=== PATIENT | female | born 1950 | race Caucasian/White ===

== ENCOUNTER → 2016-03-15 | Outpatient (CLI) | payer MEDICARE, OTHER ==
[2016-03-15 11:39] LABS: Basophils # (A) 0.1 k/uL (0-0.2); Basophils % (A) 1 %; CH 29.1; Eosinophils # (A) 0.3 k/uL (0-0.7); Eosinophils % (A) 4 %; HCT 42.2 % (34.0-46.0); HDW 2.54; HGB 13.2 gm/dL (11.4-16.0); Luc # (Auto) 0.13; Luc % (Auto) 2; Lymphocytes # (A) 1.8 k/uL (1.0-4.8); Lymphocytes % (A) 25 %; MCH 28.4 pg (25.0-35.0); MCHC 31.2 g/dL (31.0-37.0); MCV 91.2 fL (80.0-100.0); Monocytes # (A) 0.3 k/uL (0-1.0); Monocytes % (A) 4 %; Neutrophils # (A) 4.7 k/uL (1.3-7.7); Neutrophils % (A) 65 %; RBC 4.63 m/uL (3.80-5.40); RDW 15.7 % (11.5-15.5); WBC 7.2 k/uL (3.8-10.6); WBC (Perox) 7.58
[2016-03-15 11:42] LABS: Anion Gap 13 mmol/L; Blood Urea Nitrogen 15 mg/dL (7-17); Calcium 9.4 mg/dL (8.4-10.2); Carbon Dioxide 30 mmol/L (22-30); Chloride 100 mmol/L (98-107); Glucose 109 mg/dL (74-99); Non-African American GFR(MDRD) 55 (>60 ml/min/1.73 sqM); Sodium 143 mmol/L (137-145)
[2016-03-15 11:47] LABS: Potassium 2.9 mmol/L (3.5-5.1)
== END | disposition home or self-care (01) ==
LOC: LABWHC1 10:43
PROVIDERS: ATTEND Internal Medicine Clinical Cardiac Electrophysiology
DX: E78.1 Pure hyperglyceridemia (principal); I10 Essential (primary) hypertension
CPT/HCPCS: 36415; 80048; 85025

== ENCOUNTER 2016-03-20 05:58 | Day surgery (SDC) | payer MEDICARE, OTHER ==
[2016-03-16 10:23] VITALS: BMI 22.4
[2016-03-20] MEDS ORDERED: SODIUM CHLORIDE 0.9% 1,000 ML IV SCH (06:00)
[2016-03-20 06:34] VITALS: TEMP 98.1
[2016-03-20 06:59] VITALS: RESP 16
[2016-03-20 07:09] LABS: Potassium 3.9 mmol/L (3.5-5.1)
[2016-03-20] MEDS ORDERED: PROPOFOL 10 MG/ML 20 ML VIAL IV ONE (07:33)
--- NOTE | 2016-03-20 09:05 | CE ---
DATE OF SERVICE: Ms. Antoine has severe cardiomyopathy. She has a single chamber ICD, [employer] VR [id number] ICD. She was brought in for ICD testing under anesthesia. She has a Riata lead which is on advisory. Pacing threshold is 1.25 v at 1 ms, sensing 7.6 mV, pacing impedance 410 ohms, a high voltage impedance is 80 ohms from RV ( ). DFT testing was performed under anesthesia. A DC joule shock was used to induce ventricular fibrillation. This was adequately and appropriately detected at least sensitivity without any dropouts and successfully internally defibrillated with a 10 joule shock. Charge time 2 seconds. Shocking impedance 80 ohms. No postshock noise. Device is then reprogrammed according to the MADIT-RIT programming with C Accu-zones with appropriate antitachycardia pacing, cardioversion and defibrillation. Sensitivity was reprogrammed to 0.5 mV and SVC coil had been turned off for the testing and we turned it off completely. Patient tolerated the procedure well without any acute complication.
[2016-03-20 09:06] VITALS: BP 145/59
[2016-03-20 09:07] VITALS: PULSE 70
== END 2016-03-20 09:25 | disposition home or self-care (01) ==
LOC: CATHEP 05:58
PROVIDERS: ATTEND Internal Medicine Clinical Cardiac Electrophysiology
DX: I42.8 Other cardiomyopathies (principal); Z45.02 Encounter for adjustment and management of automatic implantable cardiac defibrillator; I10 Essential (primary) hypertension; E78.5 Hyperlipidemia, unspecified; E07.9 Disorder of thyroid, unspecified; J44.9 Chronic obstructive pulmonary disease, unspecified; F17.200 Nicotine dependence, unspecified, uncomplicated; G35 Multiple sclerosis; Z79.82 Long term (current) use of aspirin; Z79.899 Other long term (current) drug therapy; Z88.5 Allergy status to narcotic agent; Z88.2 Allergy status to sulfonamides
CPT/HCPCS: 93642; 80051; J2704; 99152; 99153

== ENCOUNTER → 2016-04-12 | Outpatient (CLI) | payer MEDICARE, OTHER ==
[2016-04-12 10:56] LABS: CH 29.7; HDW 2.33; HGB 13.1 gm/dL (11.4-16.0); MCH 29.1 pg (25.0-35.0); MCHC 31.2 g/dL (31.0-37.0); MCV 93.2 fL (80.0-100.0); Mean Platelet Volume 7.2; RBC 4.51 m/uL (3.80-5.40); RDW 15.5 % (11.5-15.5); WBC 8.4 k/uL (3.8-10.6)
[2016-04-12 11:04] LABS: INR 1.1 (<1.1)
[2016-04-12 11:05] LABS: ALT 24 U/L (9-52); AST 18 U/L (14-36); Alkaline Phosphatase 130 U/L (38-126); Anion Gap 13 mmol/L; Blood Urea Nitrogen 20 mg/dL (7-17); Calcium 9.8 mg/dL (8.4-10.2); Carbon Dioxide 28 mmol/L (22-30); Chloride 101 mmol/L (98-107); Glucose 115 mg/dL (74-99); Non-African American GFR(MDRD) 50 (>60 ml/min/1.73 sqM); Potassium 4.7 mmol/L (3.5-5.1); Sodium 142 mmol/L (137-145); Total Bilirubin 0.6 mg/dL (0.2-1.3); Total Protein 7.5 g/dL (6.3-8.2)
== END | disposition home or self-care (01) ==
LOC: LABWHC1 10:11
PROVIDERS: ATTEND Internal Medicine Interventional Cardiology
DX: E87.6 Hypokalemia (principal); T39.391A Poisoning by other nonsteroidal anti-inflammatory drugs [NSAID], accidental (unintentional), initial encounter
CPT/HCPCS: 36415; 80053; 85027; 85610

== ENCOUNTER → 2016-10-12 | Outpatient (CLI) | payer MEDICARE ==
--- NOTE | 2016-10-12 13:31 | XR ---
EXAMINATION TYPE: XR wrist complete RT DATE OF EXAM: 10/12/2016 CLINICAL HISTORY: pain TECHNIQUE: Frontal, lateral and oblique images of the right wrist are obtained. COMPARISON: None. FINDINGS: There is fracture noted to involve the mid scaphoid. The joint spaces appear within normal limits. The overlying soft tissue appears unremarkable. IMPRESSION: Fracture involving the mid pole of the scaphoid.
== END | disposition home or self-care (01) ==
LOC: RADXRMAIN 12:01
PROVIDERS: ATTEND Pediatrics
DX: S62.021A Displaced fracture of middle third of navicular [scaphoid] bone of right wrist, initial encounter for closed fracture (principal)

== ENCOUNTER → 2016-11-02 | Outpatient (CLI) | payer MEDICARE ==
--- NOTE | 2016-11-03 14:27 | BD ---
EXAMINATION TYPE: MG DEXA axial skeleton. DATE OF EXAM: 11/02/2016 COMPARISON: NONE CLINICAL HISTORY: Postmenopausal female. Height: 5FT Weight: 117 FRAX RISK QUESTIONS: Alcohol (3 or more units per day): NO Family History (Parent hip fracture): NO Glucocorticoids (More than 3mos): NO (Ex: prednisone, prednisolone, methylprednisolone, dexamethasone, and hydrocortisone). History of Fracture in Adulthood: YES Secondary Osteoporosis: 1. Type 1 Diabetes: NO 2. Hyperthyroidism: NO 3. Menopause before 45: YES 4. Malnutrition: NO 5. Chronic liver disease: NO Rheumatoid Arthritis: NO Current Tobacco Use: YES RISK FACTORS HISTORY OF: History of Wrist Fracture: LT WRIST When: AGE 58 Surgery to Spine/Hip(right/left)/Wrist (right/left): LT WRIST When: 58 Family History of Osteoporosis: YES Active: NO Postmenopausal woman: PART HYST AGE 35 MEDICATIONS: Thyroid Medications: YES Which medication: SYNTHROID How Long: SINCE 1975 Osteoporosis Medications: YES Which medication: FOSAMAX How Long: DOES NOT KNOW Additional Medications: VIT D3, IRON, ABILIFY, ARIPIPRAZOLE, ASPIRIN, ATIVAN, BACLOFEN, CARVEDILOL, D IGOXIN,DOCUSATE SODIUM, EFFEXOR, FOSAMAX,IBUPROFEN, KLOR-CON, LASIX, LORAZEPAM, NEURONTIN, NIASPAN, N ITROSTAT, NORCO,SPIRONOLACTONE, SYNTHROID, ZOCOR, ALBUTEROL, COMBIVENT Additional History: PT HAS MS EXAM MEASUREMENTS: Bone mineral densitometry was performed using the [employer] System. Bone mineral density as measured about the Lumbar spine is: ----- L1-L4(G/cm2): 0.986 T Score Values are as follows: ----- L2: -2.6 ----- L3: -0.6 ----- L4: -0.3 ----- L1-L4: -1.6 BASELINE Bone mineral density about the R hip (g/cm2): 0.650 Bone mineral density about the L hip (g/cm2): 0.696 T Score values are as follows: -----R Neck: -2.8 -----L Neck: -2.5 -----R Total: -2.5 -----L Total: -2.5 BASELINE IMPRESSION: Osteoporosis (T Score less than -2.5) as noted by T Score values at the left hip with values of osteo penia in the right hip approaching osteoporosis. There is increased fracture risk and therapy is usually indicated based on age. Re-Screen 1-2 years. NOTE: T-SCORE=SD OF THE YOUNG ADULT MEAN.
== END | disposition home or self-care (01) ==
LOC: RADBDWWP 16:18
PROVIDERS: ATTEND Pediatrics
DX: M81.0 Age-related osteoporosis without current pathological fracture (principal)
CPT/HCPCS: 77080

== ENCOUNTER → 2017-05-09 | Outpatient (CLI) | payer MEDICARE ==
--- NOTE | 2017-05-09 10:14 | CT ---
EXAMINATION TYPE: CT abdomen pelvis w con DATE OF EXAM: 05/09/2017 COMPARISON: NONE HISTORY: 66-year-old female with abdominal mass TECHNIQUE: Contiguous axial scanning of the abdomen and pelvis following administration of 100 ml Omn ipaque 300 IV contrast. Delayed images through the kidneys and coronal/sagittal reconstructions perf ormed. CT DLP: 821 mGycm Automated exposure control for dose reduction was used. FINDINGS: Bilateral breast prostheses are partially visualized. Right ventricular pacer lead with associated ar tifacts. Heart upper limits of normal in size without pericardial effusion. There is a moderate-sized hiatal hernia. Chronic volume loss and some patchy consolidation basilar right middle lobe. No pleur al effusion. Suggesting of left greater than right fat-containing Bochdalek hernias. Small 7 mm nodular focus of hypervascular enhancement at the right hepatic dome. Blood pool on delaye d kidney images suggesting a flash filling hemangioma. Portal venous system is patent. Mild dilatatio n of the bile duct at 9 mm. There is also mild dilatation of the main pancreatic duct at 6 mm. No obs tructing lesion is identified. No abnormal distention of the gallbladder. Diffuse thickening of the left adrenal gland without discrete nodularity. Right adrenal gland and spl een within normal limits. Numerous hypodense lesions throughout the kidneys most of which are subcentimeter and too small for a ccurate CT characterization, largest measures 1.7 cm on the right and 2.2 cm on the left compatible w ith cysts. Symmetric uptake and excretion of contrast from both kidneys. Moderate apical scarring calcifications throughout the abdominal aorta and iliac arteries without ane urysm. No mesenteric or retroperitoneal lymphadenopathy identified. Scattered moderate to large stool burden without pericolonic inflammatory change. There is a small umbilical hernia measuring 2.1 cm wide with a narrow 5 mm neck. There is some fat st randing within the hernia. Second smaller hernia is present just below measuring 1.4 cm wide with a p inhole neck. Bladder urine distended. Uterus surgically absent. Left ovary visualized. Right ovary not clearly see n. No abnormal fluid collection in the pelvis or pelvic lymphadenopathy identified. Bones: Mild degenerative changes at the left hip. Levoconvex curvature of the lumbar spine. Degenerat neal grade 1 anterolisthesis at L3-L4 and L4-L5. No osseous destructive process. IMPRESSION: 1. THERE IS A SMALL 2.1 CM FAT-CONTAINING UMBILICAL HERNIA THAT HAS A NARROW 5 MM NECK. THERE IS SOME INFLAMMATION WITHIN THE HERNIA SAC WHICH COULD REFLECT INCARCERATION. CORRELATE WITH PATIENT'S SYMPT OMS. 2. A SECOND SMALLER 1.4 CM FATTY HERNIA JUST BELOW THE UMBILICUS HAS A PINHOLE NECK BUT NO ASSOCIATED INFLAMMATION. 3. A 7 MM HYPERVASCULAR LESION IN THE RIGHT HEPATIC DOME FOLLOWS THE BLOOD POOL ON DELAYED IMAGES MOS T COMPATIBLE WITH A FLASH FILLING HEMANGIOMA. 4. MILD BILE DUCT AND PANCREATIC DUCTAL DILATATION MAY BE CHRONIC FOR THIS PATIENT. CORRELATE WITH AL KALINE PHOSPHATASE AND BILIRUBIN LEVELS TO EXCLUDE BILIARY OBSTRUCTION SUCH FROM AN AMPULLARY STEN OSIS. ERCP IF INDICATED. 5. MODERATE-SIZED HIATAL HERNIA. MODERATE TO LARGE STOOL BURDEN. 6. CORRELATE TO IF THE PATIENT'S UMBILICAL HERNIA CORRESPONDS TO THE PALPABLE ABDOMINAL MASS. IF T HIS IS NOT THE SITE OF CLINICAL CONCERN, THE EXAM CAN BE REVIEWED WITH DIRECTED ATTENTION.
== END | disposition home or self-care (01) ==
LOC: RADCTMAIN 07:42
PROVIDERS: ATTEND Internal Medicine Hematology & Oncology
DX: K42.9 Umbilical hernia without obstruction or gangrene (principal); K76.9 Liver disease, unspecified; K44.9 Diaphragmatic hernia without obstruction or gangrene; R19.00 Intra-abdominal and pelvic swelling, mass and lump, unspecified site
CPT/HCPCS: 82565; 84520; 74177; 36415; Q9967

== ENCOUNTER 2017-05-17 05:40 | Day surgery (SDC) | payer MEDICARE ==
[2017-05-14 11:09] VITALS: BMI 20.5
[~2017-05-17 05:40] MED LIST: LACTATED RINGERS 1,000 ML IV SCH; LIDOCAINE 1% 20 ML VIAL (10MG/ML) FOR IV START INTRADERMA PRN; Pre Op ABX Message 1 EACH MISC MISCELLANE ONE
[2017-05-17 06:35] VITALS: RESP 16; TEMP 98.1
[2017-05-17] MEDS ORDERED: LIDOCAINE 1% INJ 10MG/ML (20 ML MDV) ONE (07:05)
[2017-05-17] MEDS ORDERED: PROPOFOL 10 MG/ML 20 ML VIAL IV ONE (07:05)
--- NOTE | 2017-05-17 07:44 | PCN ---
PROCEDURE NOTE PREOPERATIVE DIAGNOSIS: Leukocytosis. POSTOPERATIVE DIAGNOSIS: Leukocytosis. PROCEDURE: Bone marrow aspirate and biopsy. ANESTHESIA: Local with IV systemic sedation. SITE: Right iliac crest. DETAIL: Utilizing sterile technique, the skin overlying the right iliac crest was prepared with Betadine and alcohol. After adequate sterile draping, systemic sedation and local anesthesia with 1% lidocaine, a size 11, 4-inch Jamshidi needle was utilized to access the periosteum with ease. A total of 16 mL of aspirate as well as 2 cm bone core biopsies were obtained. The patient tolerated the procedure very well. There was no immediate procedure related complication. TOTAL BLOOD LOSS: Less than 1 mL. RESULTS: Pending. MMODL / IJN: [id number] /
[2017-05-17 07:45] VITALS: BP 104/69; PULSE 74
[2017-05-17 07:54] LABS: Basophils # (A) 0.1 k/uL (0-0.2); Basophils % (A) 0 %; Eosinophils # (A) 0.3 k/uL (0-0.7); Eosinophils % (A) 2 %; HCT 37.1 % (34.0-46.0); HGB 12.5 gm/dL (11.4-16.0); Lymphocytes # (A) 1.9 k/uL (1.0-4.8); Lymphocytes % (A) 16 %; MCH 32.3 pg (25.0-35.0); MCHC 33.6 g/dL (31.0-37.0); MCV 96.2 fL (80.0-100.0); Mean Platelet Volume 7.2; Monocytes # (A) 0.4 k/uL (0-1.0); Monocytes % (A) 3 %; Neutrophils # (A) 9.5 k/uL (1.3-7.7); Neutrophils % (A) 77 %; Platelet Count 361 k/uL (150-450); RBC 3.86 m/uL (3.80-5.40); RDW 12.9 % (11.5-15.5); WBC 12.2 k/uL (3.8-10.6)
== END 2017-05-17 08:03 | disposition home or self-care (01) ==
LOC: OR 05:40
PROVIDERS: ATTEND Internal Medicine Hematology & Oncology
DX: D72.829 Elevated white blood cell count, unspecified (principal); R19.01 Right upper quadrant abdominal swelling, mass and lump; E03.9 Hypothyroidism, unspecified; K21.9 Gastro-esophageal reflux disease without esophagitis; F32.9 Major depressive disorder, single episode, unspecified; M81.0 Age-related osteoporosis without current pathological fracture; G35 Multiple sclerosis; I11.0 Hypertensive heart disease with heart failure; I50.9 Heart failure, unspecified; J44.9 Chronic obstructive pulmonary disease, unspecified; E78.5 Hyperlipidemia, unspecified; F17.200 Nicotine dependence, unspecified, uncomplicated; Z95.810 Presence of automatic (implantable) cardiac defibrillator; Z79.82 Long term (current) use of aspirin; Z79.899 Other long term (current) drug therapy; Z88.1 Allergy status to other antibiotic agents; Z88.5 Allergy status to narcotic agent; Z88.2 Allergy status to sulfonamides; Z88.8 Allergy status to other drugs, medicaments and biological substances
CPT/HCPCS: 38222; 85025; J2001; J2704

== ENCOUNTER → 2017-09-19 | Outpatient (CLI) | payer MEDICARE ==
--- NOTE | 2017-09-20 09:29 | CTL ---
EXAMINATION TYPE: CT Low Dose Lung DATE OF EXAM ORDERED: 09/19/2017 HISTORY: Tobacco abuse. Lung cancer screening CT DLP: 48.[address] CTDI: 1.5 mGy Automated exposure control for dose reduction was used. SCREENING VISIT: Initial COMPARISON: CT thorax report dated 03/17/2007. Images are not available for comparison. CT abdomen pel vis dated 05/09/2017. TECHNIQUE: Low dose computed tomography scan was performed through the chest at 1 mm thick sections a nd reconstructed images in the coronal plane at [address] DIAGNOSTIC QUALITY: Satisfactory FINDINGS: LUNG NODULES: There is a 4 mm solid pulmonary nodule within the left upper lobe on series 4 image 49. Adjacent area of probable pleural-parenchymal scarring and vascular ectasia is seen medial to this such as on imag e 51. A 3 mm pulmonary nodule that is solid in appearance in the right upper lobe on image 63 could also re present scarring or focal nodularity. Similarly in the left upper lobe on image 61 and 62 there are o ther 3 mm nodular areas that can be reevaluated on the follow-up CT. Elongated subpleural density measuring 5 mm in the right upper lobe anteriorly could also represent f ibrosis. This is solid in appearance on image 75. On sagittal image 70 and axial image 90 there is ar approximately 6 mm pulmonary nodule that appears solid in nature but associated with the adjacent vasculature, somewhat increasing the nodules size. In the inferior aspect of the right upper lobe on axial image 150 and sagittal image 76 there is a so lid 3 mm pulmonary nodule. Within the right lower lobe there is a 4 mm solid pulmonary nodule on series 4 image 192. Within the right lower lobe posteriorly there is a 3 mm solid pulmonary nodule on image 180. Within the right lower lobe in the superior segment on series 4 image 146 there is a groundglass opac ity measuring 5 mm. LUNGS: COPD: Severity: Mild centrilobular Fibrosis: Severity: None Lymph nodes: No adenopathy Other findings: Small fat containing diaphragmatic hernias are noted. Moderate hiatal hernia again se en. RIGHT PLEURAL SPACE: Effusion: None Calcification: None Thickening: None Pneumothorax: None LEFT PLEURAL SPACE: Effusion: None Calcification: None Thickening: None Pneumothorax: None HEART: Heart Size: Mildly enlarged with left-sided cardiac device Coronary calcification: Moderate to severe three-vessel. Moderate thoracic aortic atherosclerosis is also seen. Pericardial effusion: Trace OTHER FINDINGS: Upper abdomen: Left adrenal gland is ill-defined and appears enlarged although discrete nodule is wolfgang pected is not clearly measured. Right adrenal gland in its visualized portion also appears thickened. These findings are similar to the prior abdomen and pelvis of 05/09/2017 suggestive of adrenal gland h yperplasia. Bony thorax: Mild multilevel degenerative changes of the thoracic spine are noted. Supraclavicular region: No adenopathy Other: Bilateral breast implants are present. IMPRESSION: Lung RADS 2-benign appearance or behavior-multiple bilateral subcentimeter pulmonary nodu les measuring up to 5 mm for which repeat low-dose CT in 12 months is recommended to evaluate for sta bility. FOLLOW UP CT CHEST RECOMMENDATION: Continue annual screening with low dose CT in [address] LUNG RAD: Lung-Rad 2 Benign Appearance or Behavior
== END | disposition home or self-care (01) ==
LOC: RADCTMAIN 16:13
PROVIDERS: ATTEND Pediatrics
DX: Z12.2 Encounter for screening for malignant neoplasm of respiratory organs (principal); R91.8 Other nonspecific abnormal finding of lung field; F17.200 Nicotine dependence, unspecified, uncomplicated

== ENCOUNTER → 2019-01-09 | Outpatient (CLI) | payer MEDICARE ==
--- NOTE | 2019-01-09 08:01 | US ---
EXAMINATION TYPE: US abdomen limited DATE OF EXAM: 01/09/2019 COMPARISON: CT abdomen pelvis dated 05/09/2017 CLINICAL HISTORY: R19.00 Abd wall bulge. Assess for hernia at location of: umbilicus TECHNIQUE/FINDINGS: Grayscale and color ultrasound were performed with and without Valsalva in the pe riumbilical region in the area of concern. There are 2 ventral hernias both slightly to the right of umbilicus. The first is an umbilical and second is just inferior to the umbilicus [facility]. IMPRESSION: Redemonstration of two known hernias seen on the prior CT of 05/09/2017, one umbilical and one infraumbilical. Real-time scanning was performed by the county demonstr[facility] utilizing Valsalva and additional dynamic maneuve rs to assess for hernia. Images of the contralateral side were also acquired for direct comparison.
--- NOTE | 2019-01-09 09:09 | BD ---
EXAMINATION TYPE: Axial Bone Density DATE OF EXAM: 01/09/2019 COMPARISON: 11.02.2016 CLINICAL HISTORY: 68 YR OLD FEMALE IN WHEELCHAIR....ICD-10 CODE: M M81.0 OSTEOPOROSIS Height: 58.4 Weight: 115 FRAX RISK QUESTIONS: Glucocorticoids (More than 3mos): YES (Ex: prednisone, prednisolone, methylprednisolone, dexamethasone, and hydrocortisone). History of Fracture in Adulthood: YES Secondary Osteoporosis: YES 3. Menopause before 45: YES Current Tobacco Use: YES RISK FACTORS HISTORY OF: BROKEN LT FOREARM AND HUMERUS. > AGE 48 BROKEN TIB FIB > 50 YRS History of Wrist Fracture: YES AT AGE 58 Family History of Osteoporosis: YES HER AUNT, GRANDFATHER, FX HIP Diet low in dairy products/other sources of calcium: YES Postmenopausal woman: YES AT AGE 35 Lost more than 2 inches in height since high school: YES Frequent falls: UNSTEADY, IN W/C Poor Health: FRAIL, LOTS OF MEDS Hyperparathyroidism: NO Adrenal Insufficiency: NO MEDICATIONS: Prednisone or other steroids: COPD, EMPHYSEMA INHALERS , FOR MANY YRS Thyroid Medications:YES, SYNTHROID FOR MANY YRS SINCE 1974 Osteoporosis Medications: FOSAMAX, JUST STOPPED THIS WEEK ON IT FOR MANY YRS Additional Medications: BP MEDS, VIT D, ABILIFY, ARIPIPRAZOLE, ATAVAN, BACLOFEN, DIGOXIN, EFFEXOR, NS AIDS NEUROTIN, NIASPAN, NORCO, ZOCOR, ALBUTEROL, NITROSTAT, CARVEDILOL, SERGIO,S, Additional History: CHRONIC PAIN, MS, PT IN W/C EXAM MEASUREMENTS: Bone mineral densitometry was performed using the [employer] System. Bone mineral density as measured about the Lumbar spine is: ----- L1-L4(G/cm2): 1.048 T Score Values are as follows: ----- L1: -3.0 ----- L2: -2.8 ----- L3: 0.3 ----- L4: 1.2 ----- L1-L4: -1.1 Bone mineral density has: Increased 7.8% since study of: 11.02.2016 Bone mineral density about the R hip (g/cm2): 0.663 Bone mineral density about the L hip (g/cm2): 0.696 T Score values are as follows: -----R Neck: -2.7 -----L Neck: -1.9 -----R Total: -2.7 -----L Total: -2.5 Bone mineral density has: Decreased -2.6% since study of: 11.02.2016 FRAX%s: THERE IS A 59.1% CHANCE FOR A MAJOR OSTEOPOROTIC FX AND A 38.5% FOR HIP....PROBABILITY FOR FX IN 10 YRS TIME IMPRESSION: Osteoporosis (T Score less than -2.5). There is increased fracture risk and therapy is usually indicated based on age. Re-Screen 1-2 years. NOTE: T-SCORE=SD OF THE YOUNG ADULT MEAN.
== END | disposition home or self-care (01) ==
LOC: RADUSWWP 07:02
PROVIDERS: ATTEND Physician Assistant
DX: K42.9 Umbilical hernia without obstruction or gangrene (principal); M81.0 Age-related osteoporosis without current pathological fracture
CPT/HCPCS: 76705; 77080

== ENCOUNTER 2019-03-25 16:41 | Emergency (ER) | payer MEDICARE ==
[2019-03-25 17:12] VITALS: RESP 20; TEMP 97.9
[2019-03-25] MEDS ORDERED: HYDROmorphone 0.5 MG/0.5 ML SYRINGE IM STA (18:36)
[2019-03-25] MEDS ORDERED: KETOROLAC 30 MG/ML 1 ML VIAL IM STA (18:36)
[2019-03-25] MEDS ORDERED: DIAZEPAM 5 MG/ML 2 ML INJ IM ONE (18:36)
--- NOTE | 2019-03-25 19:23 | XR ---
EXAMINATION TYPE: XR lumbosacral spine min 4V DATE OF EXAM: 03/25/2019 COMPARISON: NONE HISTORY: Back pain TECHNIQUE: 5 views FINDINGS: There is mild lumbar levoscoliosis. Abdominal aorta is atheromatous. There is no compressio n fracture. There is mild degenerative disc space narrowing throughout the lumbar spine. Posterior el ements are intact. Sacroiliac joints appear normal. IMPRESSION: Mild degenerative disc changes. Levoscoliosis. No fracture.
--- NOTE | 2019-03-25 19:25 | ED ---
Back Pain HPI - General Chief Complaint: Back Pain/Injury Stated Complaint: Lower back pain Time Seen by Provider: 03/25/19 18:28 Source: patient Limitations: no limitations - History of Present Illness Initial Comments: 68-year-old female patient presents to the emergency department today for evaluation of left low back pain. Patient states she's had this pain for the last 2 weeks. Patient states the pain doesn't seem to be worsening however it is not getting any better. She denies any radiation the pain down her legs. States that she does have occasional tingling to the left leg. Denies any saddle anesthesia or loss of bowel or bladder control. Patient denies any known injury. Denies any hematuria, dysuria, urinary frequency, urinary urgency. Patient does have a history of myalgia, scoliosis, and chronic pain conditions for which she takes [place], Neurontin, and Motrin. Patient states she has been taking her usual medications without relief. She denies any fever or chills. Denies any abdominal pain. Patient denies any recent rash, shortness breath, chest pain, nausea, vomiting, diarrhea, constipation, dizziness, weakness, headache, visual changes, or any other complaints. - Related Data Home Medications Medication Instructions Recorded Confirmed ARIPiprazole [Abilify] 2 mg PO QAM 12/31/13 05/14/17 Carvedilol 12.5 mg PO BID 12/31/13 05/14/17 Gabapentin 200 mg PO TID 12/31/13 05/14/17 Hydrocodone/Acetaminophen 1 each PO Q6HR PRN 12/31/13 05/17/17 [Hydrocodone-Acetamin 7.5-325] Ibuprofen [Motrin] 800 mg PO TID PRN 12/31/13 05/17/17 LORazepam [Lorazepam] 1 mg PO TID 12/31/13 05/14/17 Spironolactone 25 mg PO DAILY 12/31/13 05/14/17 Venlafaxine HCl ER [Effexor XR] 75 mg PO DAILY 12/31/13 05/14/17 Digoxin [Lanoxin] 125 mcg PO DAILY 01/07/16 05/14/17 Furosemide [Lasix] 80 mg PO DAILY 01/07/16 05/14/17 Nitroglycerin Sl Tabs [Nitrostat] 0.4 mg SUBLINGUAL Q5M PRN 01/07/16 05/14/17 Simvastatin [Zocor] 20 mg PO HS 01/07/16 05/14/17 Ascorbic Acid [Vitamin C] 1,000 mg PO DAILY 03/16/16 05/14/17 Cholecalciferol [Vitamin D3] 2,000 unit PO DAILY 03/16/16 05/14/17 ARIPiprazole [Abilify] 5 mg PO BID 05/14/17 05/14/17 Albuterol Inhaler [Ventolin Hfa 2 puff INHALATION TID PRN 05/14/17 05/14/17 Inhaler] Albuterol Sulfate(Doseunknown) 1 applicate IH DIRECTED PRN 05/14/17 05/14/17 Alendronate Sodium [Fosamax] 70 mg PO FR 05/14/17 05/14/17 Aspirin 162 mg PO DAILY 05/14/17 05/14/17 Carbidopa/Levodopa [Sinemet 25-100 1 each PO BID 05/14/17 05/14/17 mg] Docusate Sodium [Dok] 100 mg PO DAILY 05/14/17 05/14/17 Ferrous Sulfate [Feosol] 325 mg PO DAILY 05/14/17 05/14/17 Ginkgo Biloba [place] Extract [Ginkgo 120 mg PO DAILY 05/14/17 05/14/17 Biloba] Ipratropium/Albuterol Sulfate 1 puff INHALATION QID 05/14/17 05/14/17 [Combivent Respimat Inhaler] LORazepam [Ativan] 0.5 mg PO TID 05/14/17 05/14/17 Levothyroxine Sodium [Synthroid] 88 mcg PO HS 05/14/17 05/14/17 Multivitamins, Thera [Multivitamin 1 tab PO DAILY 05/14/17 05/17/17 (formulary)] Niacin [Niaspan] 500 mg PO HS 05/14/17 05/14/17 Potassium Chloride [Klor-Con 10] 20 meq PO BID 05/14/17 05/14/17 Allergies Allergy/AdvReac Type Severity Reaction Status Date / Time albumin human [From Avonex] Allergy Rash/Hives Verified 03/25/19 17:12 albumin human Allergy Unknown Verified 03/25/19 17:12 [From Rebif (with albumin)] codeine Allergy facial Verified 03/25/19 17:12 drooping interferon beta-1a Allergy Rash/Hives Verified 03/25/19 17:12 [From Avonex] procaine HCl [From Novocain] Allergy Unknown Verified 03/25/19 17:12 sulfamethoxazole Allergy Itching Verified 03/25/19 17:12 [From Bactrim] trimethoprim [From Bactrim] Allergy Itching Verified 03/25/19 17:12 levothyroxine sodium AdvReac Vomiting Verified 03/25/19 17:12 [From Synthroid] capaxone Allergy Itching Uncoded 03/25/19 17:12 Review of Systems ROS Statement: Those systems with pertinent positive or pertinent negative responses have been documented in the HPI. ROS Other: All systems not noted in ROS Statement are negative. Past Medical History Past Medical History: Chest Pain / Angina, Heart Failure, COPD, Fibromyalgia, GERD/Reflux, Hyperlipidemia, Hypertension, Memory Impairment, Musculoskeletal Disorder, Sleep Apnea/CPAP/BIPAP, Thyroid Disorder Additional Past Medical History / Comment(s): multiple sclerosis, doesn't use CPAP History of Any Multi-Drug Resistant Organisms: None Reported Past Surgical History: Adenoidectomy, AICD, Appendectomy, Breast Surgery, Heart Catheterization, Hernia Repair, Hysterectomy, Pacemaker, Tonsillectomy Additional Past Surgical History / Comment(s): goiter removed 1974. breast implants bilateral with reconstruction 1989, bilateral hammer toe surgery. Past Anesthesia/Blood Transfusion Reactions: No Reported Reaction Type of Cardiac Device: Permanent Pacemaker, AICD Device Placement Date:: 11/08/06 Past Psychological History: Anxiety, Depression, Panic Disorder Smoking Status: Current every day smoker Past Alcohol Use History: None Reported Past Drug Use History: None Reported - Past Family History Mother Family Medical History: Cancer Sister(s) Family Medical History: Cancer General Exam Limitations: no limitations General appearance: alert, in no apparent distress, other (This is a well- developed, well-nourished elderly female patient in no acute distress. Vital signs upon presentation are temperature 97.9F, pulse 74, respirations 20, blood pressure 107/70, pulse ox 96% on room air.) Eye exam: Present: normal appearance, PERRL, EOMI. Absent: scleral icterus, conjunctival injection, periorbital swelling ENT exam: Present: normal exam, normal oropharynx, mucous membranes moist Respiratory exam: Present: normal lung sounds bilaterally. Absent: respiratory distress, wheezes, rales, rhonchi, stridor Cardiovascular Exam: Present: regular rate, normal rhythm, normal heart sounds. Absent: systolic murmur, diastolic murmur, rubs, gallop, clicks GI/Abdominal exam: Present: soft, normal bowel sounds, hernia (Umbilical hernia). Absent: distended, tenderness, guarding, rebound, rigid Extremities exam: Present: normal inspection, full ROM, normal capillary refill, other (Continue lower extremities is pink, warm, dry. Cap refills less than 3 seconds. Pedal and posttibial pulses are 2+ and equal bilaterally.). Absent: tenderness, pedal edema, joint swelling, calf tenderness Back exam: Present: normal inspection, tenderness (There is some left lumbar paraspinal tenderness, muscle spasm noted). Absent: vertebral tenderness Neurological exam: Present: alert, oriented X3, CN II-XII intact Psychiatric exam: Present: normal affect, normal mood Skin exam: Present: warm, dry, intact, normal color. Absent: rash Course Vital Signs 03/25/19 03/25/19 17:07 20:28 Temperature 97.9 F 97.9 F Pulse Rate 74 70 Respiratory 20 20 Rate Blood Pressure 107/70 104/66 O2 Sat by Pulse 96 96 Oximetry Medical Decision Making - Medical Decision Making 68-year-old female patient presents to the emergency department today for evaluation of left low back pain. Physical examination reveals some mild left lumbar spine paraspinal tenderness with evidence for muscle spasm. There is no erythema or rash noted. Patient is neurologically and neurovascularly intact. Urinalysis shows no sign of infection. X-ray of the lumbar spine was negative. Patient's pain is felt to be musculoskeletal and she'll be treated with muscle relaxer. She is urged to continue her home pain medication. He is instructed to follow-up with her primary care physician for recheck in 1-2 days. Return parameters discussed in detail. She verbalizes understanding and agrees this plan. - Lab Data Lab Results 03/25/19 Range/Units 19:35 Urine Color Yellow Urine Appearance Clear (Clear) Urine pH 6.0 (5.0-8.0) Ur Specific Purdy 1.015 (1.001-1.035) Urine Protein Negative (Negative) Urine Glucose (UA) Negative (Negative) Urine Ketones Negative (Negative) Urine Blood Negative (Negative) Urine Nitrite Negative (Negative) Urine Bilirubin Negative (Negative) Urine Urobilinogen <2.0 (<2.0) mg/dL Ur Leukocyte Esterase Small (Negative) Urine RBC 1 (0-5) /hpf Urine WBC 4 (0-5) /hpf Ur Squamous Epith Cells 5 H (0-4) /hpf Urine Bacteria Occasional H (None) /hpf Hyaline Casts 10 H (0-2) /lpf Urine Mucus Rare H (None) /hpf - Radiology Data Radiology results: report reviewed, image reviewed 5 views of the lumbosacral spine are obtained. Report was reviewed in its entirety. Impression by Dr. Krishnamurthy shows mild degenerative disc changes. Levoscoliosis. No fracture. Disposition Clinical Impression: Low back pain Disposition: HOME SELF-CARE Condition: Good Instructions (If sedation given, give patient instructions): Acute Low Back Pain (ED) Additional Instructions: Continue home medications. Take muscle relaxer as needed. Follow-up with your primary care physician for recheck in 1-2 days. Return to the emergency department immediately for any new, worsening, or concerning symptoms. Is patient prescribed a controlled substance at d/c from ED?: No Referrals: Scott Oconnor MD [Primary Care Provider] - 1-2 days Time of Disposition: 19:25
[2019-03-25 20:03] LABS: Bacteria,Urine Occasional /hpf; Hyaline Casts,Urine 10 /lpf (0-2); Mucus,Urine Rare /hpf; RBC,Urine 1 /hpf (0-5); Squamous Epithelial Cell,Urine 5 /hpf (0-4); WBC,Urine 4 /hpf (0-5)
[2019-03-25 20:14] LABS: Appearance,Urine Clear (Clear); Bilirubin,Urine Negative (Negative); Blood,Urine Negative (Negative); Color,Urine Yellow; Glucose,Urine (UA) Negative (Negative); Ketones,Urine Negative (Negative); Leukocyte Esterase,Urine Small (Negative); Nitrite,Urine Negative (Negative); Protein,Urine Negative (Negative); Specific Gravity,Urine 1.015 (1.001-1.035); Urobilinogen,Urine <2.0 mg/dL (<2.0)
[2019-03-25] MEDS ORDERED: CYCLOBENZAPRINE 10MG STARTER 3 TAB BTL PO STA (20:18)
[2019-03-25 20:29] VITALS: BP 104/66; PULSE 70
== END 2019-03-25 20:29 | disposition home or self-care (01) ==
LOC: EC 16:41
DX: M54.5 Low back pain (principal); M62.830 Muscle spasm of back; K42.9 Umbilical hernia without obstruction or gangrene; I11.0 Hypertensive heart disease with heart failure; I50.9 Heart failure, unspecified; I20.9 Angina pectoris, unspecified; M79.7 Fibromyalgia; F32.9 Major depressive disorder, single episode, unspecified; F41.9 Anxiety disorder, unspecified; F41.0 Panic disorder [episodic paroxysmal anxiety]; E78.5 Hyperlipidemia, unspecified; J44.9 Chronic obstructive pulmonary disease, unspecified; M79.9 Soft tissue disorder, unspecified; G35 Multiple sclerosis; G47.30 Sleep apnea, unspecified; R41.3 Other amnesia; E07.9 Disorder of thyroid, unspecified; F17.200 Nicotine dependence, unspecified, uncomplicated; Z88.1 Allergy status to other antibiotic agents; Z88.2 Allergy status to sulfonamides; Z88.4 Allergy status to anesthetic agent; Z88.5 Allergy status to narcotic agent; Z88.8 Allergy status to other drugs, medicaments and biological substances; Z79.890 Hormone replacement therapy; Z79.899 Other long term (current) drug therapy; Z99.89 Dependence on other enabling machines and devices; Z98.890 Other specified postprocedural states
CPT/HCPCS: 99284; 96372 ×3; 81001; 72110; J3360; J1885; J1170

== ENCOUNTER → 2019-07-14 | Day surgery (SDC) | payer MEDICARE ==
[2019-07-11 10:00] VITALS: BMI 22.8
[~2019-07-14] MED LIST changes: +IOPAMIDOL-250 100ML BTL INTRAARTER ONE; -LACTATED RINGERS 1,000 ML IV SCH; -LIDOCAINE 1% 20 ML VIAL (10MG/ML) FOR IV START INTRADERMA PRN; +LIDOCAINE 1% INJ 10MG/ML (20 ML MDV) SQ ONE; +MIDAZOLAM 2 MG/2 ML VIAL IV ONE; -Pre Op ABX Message 1 EACH MISC MISCELLANE ONE; +SODIUM CHLORIDE 0.9% 1,000 ML IV ONE; +SODIUM CHLORIDE 0.9% 1,000 ML IV SCH; +SODIUM CHLORIDE 0.9% 1,000 ML in EMPTY BAG 1 BAG IV ONE
[2019-07-14 07:18] VITALS: RESP 18; TEMP 98.1
[2019-07-14 07:18] LABS: Basophils % (A) 0 %; Eosinophils # (A) 0.2 k/uL (0-0.7); Eosinophils % (A) 2 %; HCT 41.6 % (34.0-46.0); Lymphocytes # (A) 1.9 k/uL (1.0-4.8); Lymphocytes % (A) 16 %; MCH 31.3 pg (25.0-35.0); MCHC 31.3 g/dL (31.0-37.0); Mean Platelet Volume 7.8; Monocytes # (A) 0.5 k/uL (0-1.0); Monocytes % (A) 4 %; Neutrophils # (A) 9.6 k/uL (1.3-7.7); Neutrophils % (A) 77 %; Platelet Count 323 k/uL (150-450); RBC 4.16 m/uL (3.80-5.40); RDW 13.3 % (11.5-15.5); WBC 12.4 k/uL (3.8-10.6)
[2019-07-14 07:35] LABS: Calcium 9.2 mg/dL (8.4-10.2); Potassium 3.3 mmol/L (3.5-5.1)
--- NOTE | 2019-07-14 08:14 | P.PCN ---
Date of Procedure: 07/14/19 Operative Findings: AN ABDOMINAL AORTOGRAM AND BILATERAL LOWER EXTREMITIES RUNOFF PERFORMING PHYSICIAN: Wenceslao Jaimes MD PROCEDURE PERFORMED: 1. An abdominal aortogram 2. Bilateral lower extremities runoff INDICATION: This is a 68-year-old female patient who sees Dr. William in the office with hypertension and dyslipidemia who was experiencing bilateral lower extremities intermittent claudication. She underwent an arterial duplex study and that revealed severe left SFA disease and intermediate to severe right SFA disease. She was brought today to undergo an aortogram with runoff COMPLICATION: None LEVEL OF SEDATION: Moderate was sedation length of 18 minutes APPROACH: Right common femoral artery PROCEDURE DESCRIPTION: After obtaining informed consent and explaining the procedure benefits, risks, and complications, the patient was brought to the cardiac forestry laborer. The right groin was prepped and draped in sterile fashion. The right common femoral artery was cannulated using micropuncture technique, under ultrasound guidance. A micropuncture wire was advanced, and the micropuncture sheath was advanced over the wire, then the micropuncture sheath was exchanged over an 0.35 wire into a 5-Croatian sheath dilator assembly then the wire and dilator were removed and sheath was flushed. We did an abdominal aortogram and bilateral lower extremities runoff using 5- Croatian pigtail catheter using a power injection. The catheter was initially placed at the level of the renal arteries, and it was pulled into above the bifurcation of the aorta into right and left common iliac arteries. The procedure was completed and there was no complications. SELECTIVE PERIPHERAL ANGIOGRAM: The abdominal aorta: Appears to be calcified was mild disease only The common iliac arteries: Ostial of the right common iliac artery appeared to have intermediate to severe disease. The left common iliac artery appears to have mild disease only The external iliac arteries: Are angiographically normal The internal iliac arteries: Are patent The common femoral arteries: The right common femoral artery appeared to be angiographically normal. The left common femoral artery appeared to have eccentric lesion seems to be in the range of 70% Superficial femoral arteries: The right SFA appears to be angiographically normal. The left SFA appears to have severe lesion by the distal portion Popliteal arteries: Both appears to be angiographically normal Below the knees: 3 vessels run off below the knee bilaterally CONCLUSION: 1. Intermediate to severe disease involving the right common iliac artery 2. Severe disease involving the left common femoral artery 3. Severe disease involving the left SFA POSTPROCEDURE MANAGEMENT: 1. Gradient measurement across the right common iliac artery 2. REFERENCE SERVICES HEAD of the left femoral/SFA
--- NOTE | 2019-07-14 09:02 | IR ---
EXAMINATION TYPE: IR angio abdominal w runoff DATE OF EXAM: 07/14/2019 COMPARISON: NONE HISTORY: Fluoroscopy time. Fluoroscopy was provided to the referring clinician.
[2019-07-14 15:07] VITALS: BP 154/69; PULSE 70
== END ==
LOC: CATHCVL 06:36
PROVIDERS: ATTEND Internal Medicine Interventional Cardiology
DX: I70.213 Atherosclerosis of native arteries of extremities with intermittent claudication, bilateral legs (principal); I25.10 Atherosclerotic heart disease of native coronary artery without angina pectoris; I11.0 Hypertensive heart disease with heart failure; I50.22 Chronic systolic (congestive) heart failure; I42.8 Other cardiomyopathies; E78.5 Hyperlipidemia, unspecified; G35 Multiple sclerosis; F17.210 Nicotine dependence, cigarettes, uncomplicated; Z79.82 Long term (current) use of aspirin; Z79.890 Hormone replacement therapy; Z79.899 Other long term (current) drug therapy; Z88.5 Allergy status to narcotic agent; Z88.2 Allergy status to sulfonamides; Z88.8 Allergy status to other drugs, medicaments and biological substances
CPT/HCPCS: 36200; 75625; 75716; 76937; 80048; 85025; C1769 ×4; C1894; U0003; J2250; J2001; Q9966

== ENCOUNTER 2019-10-22 09:06 | Day surgery (SDC) | payer MEDICARE ==
[2019-09-25 09:10] VITALS: BMI 23.0
[~2019-10-22 09:06] MED LIST changes: -IOPAMIDOL-250 100ML BTL INTRAARTER ONE; -LIDOCAINE 1% INJ 10MG/ML (20 ML MDV) SQ ONE; -MIDAZOLAM 2 MG/2 ML VIAL IV ONE; -SODIUM CHLORIDE 0.9% 1,000 ML IV ONE; -SODIUM CHLORIDE 0.9% 1,000 ML IV SCH
[2019-10-22 09:34] LABS: Basophils # (A) 0.1 k/uL (0-0.2); Basophils % (A) 1 %; Eosinophils # (A) 0.4 k/uL (0-0.7); Eosinophils % (A) 3 %; HCT 44.5 % (34.0-46.0); HGB 14.4 gm/dL (11.4-16.0); Lymphocytes # (A) 2.8 k/uL (1.0-4.8); Lymphocytes % (A) 21 %; MCH 31.6 pg (25.0-35.0); MCHC 32.3 g/dL (31.0-37.0); Mean Platelet Volume 7.9; Monocytes # (A) 0.5 k/uL (0-1.0); Monocytes % (A) 4 %; Neutrophils # (A) 9.3 k/uL (1.3-7.7); Neutrophils % (A) 70 %; Platelet Count 364 k/uL (150-450); RBC 4.54 m/uL (3.80-5.40); RDW 13.7 % (11.5-15.5); WBC 13.3 k/uL (3.8-10.6)
[2019-10-22] MEDS ORDERED: MIDAZOLAM 2 MG/2 ML VIAL IVP ONE (09:52)
[2019-10-22] MEDS ORDERED: LIDOCAINE 1% INJ 10MG/ML (20 ML MDV) SQ ONE (09:54)
[2019-10-22] MEDS ORDERED: HEPARIN SODIUM 1,000 UN/ML (10ML VL) IV ONE (10:00)
[2019-10-22] MEDS: fentaNYL (PF) 50 MCG/ML 2 ML AMP IV ONE ×2 (10:17→10:41)
[2019-10-22] MEDS ORDERED: NITROGLYCERIN 1000MCG/10ML SYRINGE INTRACORON ONE (10:48)
[2019-10-22] MEDS ORDERED: NITROGLYCERIN 1000MCG/10ML SYRINGE INTRAARTER ONE (10:48)
[2019-10-22] MEDS ORDERED: niCARdipine Syringe (1,000 mcg/10 mL) INTRAARTER ONE (10:53)
[2019-10-22] MEDS ORDERED: IOPAMIDOL-250 100ML BTL INTRAARTER ONE (11:22)
[2019-10-22] MEDS ORDERED: CLOPIDOGREL 75 MG TAB PO ONE (11:23)
[2019-10-22] MEDS ORDERED: HYDROcodone/APAP 7.5-325MG 1 EACH TAB PO PRN (11:28)
[2019-10-22] MEDS ORDERED: IPRATROPIUM-ALBUTEROL 3 ML NEB INHALATION PRN (11:28)
[2019-10-22] MEDS ORDERED: IBUPROFEN 800 MG TAB PO PRN (11:28)
[2019-10-22] MEDS ORDERED: SODIUM CHLORIDE 0.9% 1,000 ML IV SCH (11:45)
[2019-10-22] MEDS ORDERED: PROTAMINE SULFATE 10 MG/ML 5 ML VIAL IV STA (12:40)
[2019-10-22 12:41] LABS: Basophils # (A) 0.1 k/uL (0-0.2); Basophils % (A) 1 %; Eosinophils # (A) 0.6 k/uL (0-0.7); Eosinophils % (A) 4 %; HCT 44.1 % (34.0-46.0); HGB 13.7 gm/dL (11.4-16.0); Lymphocytes # (A) 2.9 k/uL (1.0-4.8); Lymphocytes % (A) 23 %; MCH 31.3 pg (25.0-35.0); Macrocytosis Slight; Mean Platelet Volume 7.2; Monocytes # (A) 0.5 k/uL (0-1.0); Monocytes % (A) 4 %; Neutrophils # (A) 8.5 k/uL (1.3-7.7); Neutrophils % (A) 67 %; Platelet Count 299 k/uL (150-450); RBC 4.37 m/uL (3.80-5.40); RDW 13.8 % (11.5-15.5); WBC 12.7 k/uL (3.8-10.6)
[2019-10-22 12:47] LABS: Calcium 8.9 mg/dL (8.4-10.2); Potassium 3.7 mmol/L (3.5-5.1)
--- NOTE | 2019-10-22 12:47 | IR ---
EXAMINATION TYPE: IR stent intravas non coronary DATE OF EXAM: 10/22/2019 CLINICAL HISTORY: Lower extremity peripheral vascular disease. TECHNIQUE: Fluoroscopy. COMPARISON: None. FINDINGS: Fluoroscopic guidance was provided during lower extremity angiogram with stent insertion p rocedure performed by Dr. Jaimes. A total of 27.4 minutes of fluoroscopic time was utilized during the procedure and multiple cine runs are acquired. Images show left lower extremity access with subseque nt angioplasty and stent insertion. Please refer to procedure note for further details. IMPRESSION: As Above.
[2019-10-22] MEDS: SODIUM CHLORIDE 0.9% 1,000 ML in EMPTY BAG 1 BAG IV SCH (12:50)
[2019-10-22] MEDS: VENLAFAXINE HCL ER 75 MG CAP PO SCH ×2 (15:07→22:24)
[2019-10-22] MEDS: CARBIDOPA-LEVODOPA 25-100 MG 1 EACH TAB PO SCH ×2 (15:07→21:28)
[2019-10-22] MEDS: GABAPENTIN 100 MG CAP PO SCH ×2 (15:07→21:29)
[2019-10-22] MEDS: LORazepam 0.5 MG TAB PO SCH ×2 (15:07→21:30)
[2019-10-22] MEDS ORDERED: LORazepam 1 MG TAB PO SCH (16:00)
[2019-10-22] MEDS: carvediloL 12.5 MG TAB PO SCH (17:46)
[2019-10-22] MEDS: ATORVASTATIN 20 MG TAB PO SCH (21:27)
[2019-10-22] MEDS: POTASSIUM CHLORIDE ER 10 MEQ TAB.ER.PRT PO SCH (21:27)
[2019-10-22] MEDS: ARIPiprazole 5 MG TAB PO SCH (21:32)
--- NOTE | 2019-10-22 23:47 | AN ---
ANGIOGRAPHY REPORT DATE OF SERVICE: October 22, 2019 PERFORMING PHYSICIAN: Wenceslao Jaimes MD. PROCEDURE PERFORMED: 1. Successful atherectomy of the left SFA and left common femoral artery using the HawkOne device. 2. Successful balloon angioplasty of the left SFA and left common femoral artery. 3. Intravascular ultrasound of the left SFA and left common femoral artery. 4. Left lower extremity angiogram. 5. Successful stenting of the right common iliac artery. 6. Selective right common iliac artery angiogram. 7. Selective right common femoral artery angiogram. INDICATION: This is a 69-year-old female patient who was experiencing bilateral lower extremity intermittent claudication, worse on the left side. She underwent an angiogram which revealed intermediate to severe disease involving the right common iliac artery and severe disease involving the left common femoral artery as well as intermediate to severe disease involving the left common femoral artery. She was brought today to undergo an intervention. APPROACH: Right common femoral artery. COMPLICATION: None. LEVEL OF SEDATION: Moderate with sedation length of 80 minutes. PROCEDURE DESCRIPTION: After obtaining an informed consent, the patient was brought to the cardiac clinical lab clerk. The right common femoral artery was cannulated using micropuncture technique, the micropuncture wire passed easily then I placed a 6-Jamaican sheath 11 cm at the right common femoral artery. After that, I did select the left SFA using 0.035 stiff Glidewire over 5-Jamaican Rim catheter. Subsequently I did exchange my 6-Jamaican 11 cm sheath into 55 cm Henrry sheath using 0.035 stiff Glidewire at 5-Jamaican Rim catheter. Subsequently, I did left lower extremity angiogram which revealed critical disease involving the left SFA and intermediate to severe disease involving the left common femoral artery. I did cross the lesion. At that point, anticoagulation was initiated using heparin with weight based and continuous ACT monitoring throughout the procedure. Subsequently, I did atherectomy of the left SFA using the TurboHawk device with extraction of significant amount of plaque. Subsequently the atherectomy of the left common femoral artery as well. The atherectomy of the common femoral artery on the left side was performed also using the TurboHawk device. After that I did intravascular ultrasound which revealed the diameter of the SFA around 6 to 7 mm and the left common femoral artery about 7 mm to 8 mm. Balloon angioplasty of the left SFA and left common femoral artery was performed. I did balloon angioplasty of the left SFA using a Chocolate balloon initially and subsequently drug coated balloon which was 5 x 60 mm and the following angiogram showed excellent angiographic results. For the left common femoral artery, I did balloon angioplasty using 6 mm also was a chocolate balloon. The following angiogram showed excellent angiographic results. After that when I pulled the sheath back to the right common iliac artery, I did selective right common iliac artery angiogram which showed what seems to be dissection and seems to be a large area of dissection which I decided to cover with stent. I did deploy 7 x 37 mm balloon expandable stent where the stent was positioned under fluoroscopic guidance and deployed under 14 atmospheres for 20 seconds. I post-dilated the stent using 8 mm balloon. The final angiogram showed excellent angiographic results. After that I did exchange my long sheath into short sheath before I did selective right common femoral artery angiogram. The procedure was completed without any complication. POSTPROCEDURE MANAGEMENT: 1. Dual anti-platelet therapy. 2. Risk factor modifications. 3. Follow up with the patient. MMODL / IJN: [id number] /
[2019-10-23] MEDS ORDERED: LEVOTHYROXINE 75 MCG TAB PO SCH (06:30)
[2019-10-23] MEDS: carvediloL 12.5 MG TAB PO SCH ×2 (07:06→15:55)
[2019-10-23] MEDS: SODIUM CHLORIDE 0.9% 1,000 ML in EMPTY BAG 1 BAG IV SCH (07:13)
[2019-10-23 08:45] LABS: Basophils % (A) 0 %; Eosinophils # (A) 0.3 k/uL (0-0.7); Eosinophils % (A) 2 %; HCT 38.6 % (34.0-46.0); HGB 12.2 gm/dL (11.4-16.0); Lymphocytes # (A) 1.2 k/uL (1.0-4.8); Lymphocytes % (A) 8 %; MCH 31.6 pg (25.0-35.0); MCHC 31.6 g/dL (31.0-37.0); MCV 100.1 fL (80.0-100.0); Macrocytosis Slight; Mean Platelet Volume 7.5; Monocytes # (A) 0.5 k/uL (0-1.0); Monocytes % (A) 3 %; Neutrophils # (A) 13.7 k/uL (1.3-7.7); Neutrophils % (A) 87 %; Platelet Count 263 k/uL (150-450); RBC 3.85 m/uL (3.80-5.40); WBC 15.7 k/uL (3.8-10.6)
[2019-10-23 08:51] LABS: Calcium 8.6 mg/dL (8.4-10.2); Potassium 3.3 mmol/L (3.5-5.1)
[2019-10-23] MEDS ORDERED: Potassium Replacement Protocol 1 EACH MISC MISCELLANE PRN (09:26)
[2019-10-23] MEDS: POTASSIUM CHLORIDE ER 20 MEQ TAB.ER PO SCH ×2 (09:46→10:50)
[2019-10-23] MEDS: POTASSIUM CHLORIDE ER 10 MEQ TAB.ER.PRT PO SCH ×2 (09:48→21:22)
--- NOTE | 2019-10-23 10:53 | US ---
EXAMINATION TYPE: US lower ext pseudo artery RT DATE OF EXAM: 10/23/2019 COMPARISON: NONE CLINICAL HISTORY: r/o pseudoaneursym post procedure. post procedure right groin, edema and bruising r ight groin EXAM PERFORMED: Grayscale and color Doppler duplex imaging performed of the groin, post cardiac arnoldo ter to assess for pseudoaneurysm. SIDE PERFORMED: right Color and Waveform Doppler performed to assess for the presence of pseudoaneurysm; Is there ultrasound evidence of a pseudoaneurysm: no Is there evidence of AV shunting: no Is there a fluid collection present: no lymph node right groin = 1.7 x 0.4 x 1.2cm IMPRESSION: No evidence for pseudoaneurysm at this time.
[2019-10-23] MEDS: LORazepam 0.5 MG TAB PO SCH ×3 (11:08→21:25)
[2019-10-23] MEDS: VENLAFAXINE HCL ER 75 MG CAP PO SCH ×3 (11:08→21:22)
[2019-10-23] MEDS: GABAPENTIN 100 MG CAP PO SCH ×3 (11:08→21:22)
--- NOTE | 2019-10-23 11:13 | DS ---
DISCHARGE SUMMARY ADMISSION DATE: 10/22/2019 DISCHARGE DATE: 10/23/2019 BRIEF HISTORY: This is a 69-year-old female patient who underwent yesterday SOFTWARE ANALYST of the right iliac and left SFA. The patient was seen this morning. She is asymptomatic. She is going to be discharged home on dual anti-platelet therapy and statin and I will follow up with the patient next week in the office. ERVIN / NUZHAT: [id number] /
[2019-10-23 12:28] LABS: Glucose,Whole Blood 121 mg/dL (75-99)
--- NOTE | 2019-10-23 14:19 | CT ---
EXAMINATION TYPE: CT abdomen pelvis wo con DATE OF EXAM: 10/23/2019 COMPARISON: 05/09/2017 INDICATION: r/o post procedural bleed DLP: 378.7 mGycm, Automated exposure control for dose reduction was used. CONTRAST: 0 mL of Isovue 300. Study performed without Oral Contrast TECHNIQUE: Axial images were obtained from above the diaphragm to the pubic rami in the axial plane a t 5 mm thick sections. Reconstructed images are reviewed on the computer in the coronal plane. FINDINGS: Limited CT sections are obtained the lung bases. Minimal bilateral pleural effusions are present. Th ere are some mild infiltrate the lung bases can be related to atelectasis. Small hiatal hernia is pre sent.. CT ABDOMEN: Small periumbilical hernia is present containing mesenteric fat. Liver: Normal Spleen: Normal Pancreas: Normal Adrenal glands: The adrenal glands are normal. Gallbladder: Normal Kidneys: There is a 2 cm hyperdense lesion on the inferior pole right kidney. No hydronephrosis is pr esent. There are several cysts on the mid right kidney and inferior pole right kidney. The cyst on the inferior lateral left kidney currently measures 2.3 cm which is larger than 1.9 cm previous Concetta yed images were obtained through the kidneys, which remain unremarkable. Aorta: Vascular calcification is within the aorta. Critical complete obstruction at the right common iliac origin may be present from calcification. Inferior vena cava: Flattened which can be related to the patient's volume status. CT PELVIS: Loops of bowel within the abdomen and pelvis are normal. Moderate fecal retention is present. This study is without oral contrast limiting bowel evaluation Appendix: Normal as visualized. Urinary bladder: Normal. Genitourinary structures: Uterus is not identified. Adnexal regions appear unremarkable. Osseous structures: No suspicious lytic or sclerotic lesions. Facet degenerative changes are present. IMPRESSIONS: 1. No suspicious changes to suggest large hematoma or free hemorrhage. 2. Small bilateral pleural effusions with suspected mild bibasilar atelectasis. 3. Hiatal hernia. 4. Previous hypodensity at the inferior pole right kidney is hyperdense on the current exam measuring 84 Hounsfield units. A solid lesion should be considered. Additional workup with ultrasound of the i nferior pole right kidney is recommended. 5. Small periumbilical fat-containing hernia.
[2019-10-23] MEDS: ARIPiprazole 5 MG TAB PO SCH ×2 (14:20→21:22)
[2019-10-23] MEDS: CARBIDOPA-LEVODOPA 25-100 MG 1 EACH TAB PO SCH ×3 (14:20→21:23)
[2019-10-23] MEDS: ARIPiprazole 2 MG TAB PO SCH (14:20)
[2019-10-23] MEDS: CHOLECALCIFEROL 1,000 UNIT TAB PO SCH (14:25)
[2019-10-23] MEDS: ASPIRIN 81 MG PO SCH (14:25)
[2019-10-23] MEDS: CYANOCOBALAMIN 500 MCG TAB PO SCH (14:26)
[2019-10-23] MEDS: CLOPIDOGREL 75 MG TAB PO SCH (14:26)
[2019-10-23] MEDS: DIGOXIN 125 MCG TAB PO SCH (14:26)
[2019-10-23] MEDS: FUROSEMIDE 80 MG TAB PO SCH (14:26)
[2019-10-23] MEDS: lisinopriL 10 MG TAB PO SCH (14:26)
[2019-10-23] MEDS: SPIRONOLACTONE 25 MG TAB PO SCH (14:27)
[2019-10-23] MEDS: FERROUS SULFATE 325 MG TAB PO SCH (14:46)
[2019-10-23 17:23] LABS: Glucose,Whole Blood 152 mg/dL (75-99)
[2019-10-23] MEDS: ATORVASTATIN 20 MG TAB PO SCH (21:22)
[2019-10-23 23:50] LABS: Glucose,Whole Blood 99 mg/dL (75-99)
[2019-10-24 00:21] VITALS: TEMP 98.6
[2019-10-24] MEDS: SODIUM CHLORIDE 0.9% 1,000 ML in EMPTY BAG 1 BAG IV SCH (02:05)
[2019-10-24] MEDS ORDERED: LEVOTHYROXINE 50 MCG TAB PO SCH (06:30)
[2019-10-24 06:37] LABS: Glucose,Whole Blood 145 mg/dL (75-99)
[2019-10-24] MEDS: carvediloL 12.5 MG TAB PO SCH ×2 (07:17→16:09)
[2019-10-24 08:38] LABS: Basophils % (A) 0 %; Calcium 9.4 mg/dL (8.4-10.2); Eosinophils # (A) 0.3 k/uL (0-0.7); Eosinophils % (A) 2 %; HCT 37.4 % (34.0-46.0); HGB 11.9 gm/dL (11.4-16.0); Lymphocytes # (A) 1.5 k/uL (1.0-4.8); Lymphocytes % (A) 10 %; MCH 31.5 pg (25.0-35.0); MCHC 31.7 g/dL (31.0-37.0); MCV 99.1 fL (80.0-100.0); Mean Platelet Volume 7.2; Monocytes # (A) 0.5 k/uL (0-1.0); Monocytes % (A) 3 %; Neutrophils # (A) 12.1 k/uL (1.3-7.7); Neutrophils % (A) 83 %; Platelet Count 278 k/uL (150-450); RBC 3.77 m/uL (3.80-5.40); RDW 14.1 % (11.5-15.5); WBC 14.5 k/uL (3.8-10.6)
[2019-10-24] MEDS: CYANOCOBALAMIN 500 MCG TAB PO SCH (09:01)
[2019-10-24] MEDS: CHOLECALCIFEROL 1,000 UNIT TAB PO SCH (09:01)
[2019-10-24] MEDS: SPIRONOLACTONE 25 MG TAB PO SCH (09:01)
[2019-10-24] MEDS: GABAPENTIN 100 MG CAP PO SCH ×2 (09:01→16:09)
[2019-10-24] MEDS: DIGOXIN 125 MCG TAB PO SCH (09:01)
[2019-10-24] MEDS: ASPIRIN 81 MG PO SCH (09:01)
[2019-10-24] MEDS: CARBIDOPA-LEVODOPA 25-100 MG 1 EACH TAB PO SCH ×2 (09:02→16:09)
[2019-10-24] MEDS: FUROSEMIDE 80 MG TAB PO SCH (09:02)
[2019-10-24] MEDS: POTASSIUM CHLORIDE ER 10 MEQ TAB.ER.PRT PO SCH (09:02)
[2019-10-24] MEDS: lisinopriL 10 MG TAB PO SCH (09:02)
[2019-10-24] MEDS: CLOPIDOGREL 75 MG TAB PO SCH (09:02)
[2019-10-24] MEDS: ARIPiprazole 5 MG TAB PO SCH (09:04)
[2019-10-24] MEDS: VENLAFAXINE HCL ER 75 MG CAP PO SCH ×2 (09:04→16:09)
[2019-10-24] MEDS: ARIPiprazole 2 MG TAB PO SCH (09:04)
[2019-10-24] MEDS: LORazepam 0.5 MG TAB PO SCH ×2 (09:05→16:10)
[2019-10-24 12:17] LABS: Glucose,Whole Blood 133 mg/dL (75-99)
[2019-10-24] MEDS: FERROUS SULFATE 325 MG TAB PO SCH (12:41)
[2019-10-24 16:12] VITALS: BP 118/57; PULSE 72; RESP 16
--- NOTE | 2019-10-24 19:48 | DS ---
DISCHARGE SUMMARY PROGRESS NOTE: DATE OF SERVICE: 10/24/2019 This is a pleasant 69-year-old female patient who underwent successful angioplasty of the right iliac and left SFA 2 days ago. She was kept one more night because she did have some change in mental status yesterday which we think is related to her pain medication and anti-anxiety medications. She was seen this morning and she seems to be doing much better in terms of mentation. Her vitals are stable. The right groin is soft and nontender and without any bruises. The patient is going to be discharged home on dual anti-platelet therapy to follow up with Dr. William in the office. MMODL / IJN: [id number] /
== END 2019-10-24 18:37 | disposition home or self-care (01) ==
LOC: CATHCVL 09:06 → 3SCARD 11:39 → CATHCVL 10-24 18:37
PROVIDERS: ATTEND Internal Medicine Interventional Cardiology
DX: I70.213 Atherosclerosis of native arteries of extremities with intermittent claudication, bilateral legs (principal); I70.8 Atherosclerosis of other arteries; I11.0 Hypertensive heart disease with heart failure; I50.22 Chronic systolic (congestive) heart failure; I95.2 Hypotension due to drugs; I25.10 Atherosclerotic heart disease of native coronary artery without angina pectoris; E78.5 Hyperlipidemia, unspecified; F17.210 Nicotine dependence, cigarettes, uncomplicated; I42.8 Other cardiomyopathies; G35 Multiple sclerosis; Z79.82 Long term (current) use of aspirin; Z79.52 Long term (current) use of systemic steroids; Z79.890 Hormone replacement therapy; Z79.899 Other long term (current) drug therapy; Z88.5 Allergy status to narcotic agent; Z88.2 Allergy status to sulfonamides; Z88.8 Allergy status to other drugs, medicaments and biological substances
CPT/HCPCS: 37227; 37221; 37252; 80048 ×3; 85025 ×3; 93975; 93926; 74176; C1894 ×3; C1769 ×7; C1725 ×2; C1714; C1753; C2623; C1876; J2250; J2720; J2001; J3010; J1644; Q9966